=== PATIENT | female | born 1940 | race Caucasian/White ===

== ENCOUNTER 2017-02-25 06:59 | Inpatient (IN) | payer OTHER ==
[2017-01-29 13:05] VITALS: Ht 170.2 cm; Wt 85.3 kg
--- NOTE | 2017-01-29 13:43 | PAT Medication Instructions ---
Service Date Jan 29, 2017. Current Home Medication List Aclidinium Lodi (Tudorza Pressair), 1 PUFF INH BID Alprazolam (Xanax), 0.5 TAB PO DAILY PRN for Anxiety Aspirin (Aspirin Ec), 81 MG PO QAM Celecoxib (CeleBREX), 1 CAP PO DAILY PRN for Pain Medication Instructions For Your Scheduled Surgery - Check with surgeon for instructions: Celecoxib (CeleBREX), 1 CAP PO DAILY PRN for Pain - Take the following medications the morning of surgery with a sip of water: Aclidinium Lodi (Tudorza Pressair), 1 PUFF INH BID Alprazolam (Xanax), 0.5 TAB PO DAILY PRN for Anxiety (if needed) Aspirin (Aspirin Ec), 81 MG PO QAM - Take the following medications as scheduled the night before surgery: Aclidinium Lodi (Tudorza Pressair), 1 PUFF INH BID Alprazolam (Xanax), 0.5 TAB PO DAILY PRN for Anxiety (if needed) If you have any questions please call us at [phone] or [phone] or [phone]
--- NOTE | 2017-01-29 14:51 | DIAGNOSTIC IMAGING REPORT ---
CHEST 2 VIEWS ROUTINE CLINICAL HISTORY: PAT preoperative evaluation COMPARISON STUDY: No previous studies for comparison. FINDINGS: Findings consistent with a total left pneumonectomy. Cardia style silhouette shift to the left on a compensatory basis. Right lung is considered clear. IMPRESSION: No acute process. Prior left pneumonectomy. The above report was generated using voice recognition software. It may contain grammatical, syntax or spelling errors. Electronically signed by: Donato Patel M.D. 01/29/2017 2:50 PM Dictated Date/Time: 01/29/2017 2:49 PM
[2017-01-29 15:42] LABS: BASO % 0.6 %; BASO ABS # 0.04 K/uL (0-0.2); EOS % 3.3 %; EOS ABS # 0.22 K/uL (0-0.5); HEMOGLOBIN 13.4 g/dL (12.0-16.0); IG# 0.02 K/uL (0.00-0.02); LYMPH % 19.7 %; LYMPH ABS # 1.33 K/uL (1.2-3.4); MEAN CELL VOLUME 91.9 fL (80-100); MEAN CORPUSCULAR HGB CONC 32.7 g/dl (32-36); MEAN PLATELET VOLUME 10.2 fL (7.4-10.4); MONO % 8.9 %; NEUT % 67.2 %; NEUT ABS # 4.53 K/uL (1.4-6.5); PLATELET COUNT 267 K/uL (130-400); RED CELL DISTRIBUTION WIDTH CV 13.9 % (11.5-14.5); RED CELL DISTRIBUTION WIDTH SD 46.7 fL (36.4-46.3); WHITE BLOOD COUNT 6.74 K/uL (4.8-10.8)
[2017-01-29 15:49] LABS: ALBUMIN 3.7 gm/dl (3.4-5.0); CALCIUM 9.4 mg/dl (8.5-10.1); CREATININE 0.98 mg/dl (0.60-1.20)
[2017-01-29 15:50] LABS: PTT PATIENT 28.5 SECONDS (21.0-31.0)
[2017-01-30 06:42] LABS: HEMOGLOBIN A1C 5.7 % (4.5-5.6)
--- NOTE | 2017-02-24 19:16 | HISTORY & PHYSICAL EXAMINATION ---
DATE OF ADMISSION: 02/25/2017 CHIEF COMPLAINT: Chronic right knee pain. HISTORY OF PRESENT ILLNESS: This is a 76-year-old female patient of Dr. Looney'awa complaining of chronic right knee pain, longstanding, now progressively getting worse. The patient has been diagnosed with end-stage osteoarthritis, per clinical and radiographic exams. The patient has failed conservative treatment including intraarticular injections and anti-inflammatories. The patient has increased pain with weightbearing activities and her pain does interfere with her activities of daily living. PAST MEDICAL HISTORY: She had a left lung removed, osteoarthritis, and history of lung cancer. SOCIAL HISTORY: She was a lifelong smoker, half pack per day, quit in 2009. She is currently an occasional alcohol drinker. PAST SURGICAL HISTORY: Lung resection, 2 C-sections, tonsillectomy and appendectomy. FAMILY HISTORY: Noncontributory. REVIEW OF SYSTEMS: The patient complains of chronic right knee pain; otherwise, denies any shortness of breath, chest pain, nausea, vomiting or any other joint complaints. MEDICATIONS: Include: 1. Tudorza inhaler twice daily. 2. Alprazolam 0.5 mg 1/2 tablet as needed. 3. Celebrex 200 mg p.r.n. 4. An 81 mg aspirin daily. ALLERGIES: IV DYE AND WELLBUTRIN. PHYSICAL EXAMINATION: GENERAL: Well-developed, well-nourished 76-year-old female in no acute distress. She is alert and oriented x3 and pleasant. HEENT: Normocephalic, atraumatic. Extraocular motions are intact. Pupils are equal and reactive to light. HEART: Regular rate and rhythm, no murmurs appreciated. LUNGS: Have significantly decreased sounds on the left side. Right side normal. ABDOMEN: Soft, nontender, bowel sounds present. EXTREMITIES: Right knee reveals a valgus deformity. She has diffuse tenderness with crepitation on passive range of motion. Range of motion is 0-135 degrees. She has 5/5 strength. NEUROLOGIC: Neurovascularly, she is intact in her right lower extremity. DIAGNOSES: Right knee end-stage osteoarthritis, history of lung cancer with subsequent lung resection on the left, and osteoarthritis. PLAN: The patient was advised of her diagnosis. Indications, risks, benefits, and postop course have all been reviewed. The patient wishes to proceed with a right total knee arthroplasty. Necessary consent forms, preoperative testing and clearances will be obtained.
[~2017-02-25] VITALS: Ht 170.2 cm; Wt 85.3 kg
[2017-02-25] VITALS (8 sets, daily range): BP systolic 93–136; BP diastolic 59–87; PULSE 74–95; TEMP 36.3–36.8; O2SAT 93–97
[2017-02-25] MEDS: TRANEXAMIC ACID INJ 1,000 MG in SYRINGE 0 ML IV SCH ×2 (06:30→09:00)
[~2017-02-25 06:59] MED LIST: ACETAMINOPHEN 500 MG TAB PO SCH; ACLI1AER3 INH; ALPR-411 PO; ASPI81TA28 PO; BUPIVACAINE 0.25% 30 ML VIAL ONE; BUPIVACAINE 0.5 % 5 MG/1 ML PF 10ML VIAL ONE; CEFAZOLIN 2000MG IV PUSH 10 ML IV SCH; CLB/200 PO; CeleBREX 200 MG CAP PO SCH; DEXAMETHASONE 4 MG TAB PO SCH; FAMOTIDINE 20 MG TAB PO SCH; GABAPENTIN 300 MG CAP PO SCH; LACTATED RINGER'S 1000ML 1,000 ML IV SCH; LACTATED RINGER'S 1000ML 500 ML IV SCH; LACTATED RINGER'S 1000ML IV SCH; METOCLOPRAMIDE HCL 10 MG TAB PO SCH; ROPIVACAINE 5MG/ML 30 ML 150 MG, BUPIVACAINE 0.5% MPF INJ 30 ML, EpINEphrine HCL INJ 0.... INFIL SCH
[2017-02-25] MEDS ORDERED: ATROPINE SULFATE 0.1 MG/ML 5ML SYR IV PRN (07:15)
[2017-02-25] MEDS ORDERED: ONDANSETRON INJ 2 MG/ML 2 ML VIAL IV PRN ×2 (07:15→12:00)
[2017-02-25] MEDS ORDERED: EpHEDrine SULFATE INJ 50 MG/ML AMP IV PRN (07:15)
[2017-02-25] MEDS ORDERED: MIDAZOLAM HCL 1 MG/ML 2ML VIAL ONE ×2 (08:07)
[2017-02-25] MEDS ORDERED: LIDOCAINE HCL 2% 2 ML VIAL (20MG/ML) ONE (08:07)
[2017-02-25] MEDS ORDERED: PROPOFOL IV EMULSION 10 MG/ML 20 ML VIAL IV ONE (08:07)
--- NOTE | 2017-02-25 09:21 | History & Physical Bridge Note ---
H&P Re-Evaluation Bridge Note: I have examined the patient, reviewed the History & Physical and in the interval since the performance of the History & Physical I have noted the following changes of clinical significance: No changes noted
[2017-02-25] MEDS ORDERED: ORTHO JOINT ANESTHETIC ONE (09:30)
[2017-02-25] MEDS ORDERED: BACITRACIN 50000 UNIT VIAL ONE (09:30)
[2017-02-25] MEDS: POVIDONE-IODINE OP SOLN 30 ML BTL ONE ×2 (10:29→11:37)
[2017-02-25] MEDS ORDERED: SOD PHOSPHATE/SOD BIPHOSPHATE ENEMA 132 ML BTL PR PRN (12:00)
[2017-02-25] MEDS ORDERED: ZOLPIDEM TARTRATE 5 MG TAB PO PRN (12:00)
[2017-02-25] MEDS ORDERED: CEFAZOLIN IV 2,000 MG in DEXTROSE 5% 50ML 50 ML IV SCH (12:00)
[2017-02-25] MEDS ORDERED: ALPRAZOLAM 0.25 MG TAB PO PRN (12:00)
[2017-02-25] MEDS ORDERED: MoRPHine SULFATE 2 MG/ML CARP IV PRN ×2 (12:00→14:00)
[2017-02-25] MEDS ORDERED: MAGNESIUM HYDROXIDE SUSP 30 ML UDC PO PRN (12:00)
[2017-02-25] MEDS ORDERED: BISACODYL 10 MG SUPP PR PRN (12:00)
[2017-02-25] MEDS ORDERED: METOCLOPRAMIDE HCL INJ 5 MG/ML 2 ML VIAL IV PRN (12:00)
[2017-02-25] MEDS ORDERED: TRAMADOL HCL 50 MG TAB PO PRN (12:00)
--- NOTE | 2017-02-25 12:02 | [facility] Post Operative Brief Note ---
Immediate Operative Summary Operative Date Feb 25, 2017. Pre-Operative Diagnosis Right knee end-stage osteoarthritis Post-Operative Diagnosis same Procedure(s) Performed Right Total Knee Arthroplasty Surgeon Dr. Liu Looney Bisque Tile Burner Surgeon(s) Donato Ochoa PA-C Estimated Blood Loss 10cc Findings lateral compartment oa grade 4 valgus knee Specimens bone cuts Drains 2 hemovac Anesthesia spinal sedation and orthomix Complication(s) None Disposition Recovery Room / PACU
--- NOTE | 2017-02-25 12:12 | Anesthesiology Progress Note ---
Anesthesia Post Op Note Date & Time Feb 25, 2017 at 12:12 Vital Signs Pain Intensity: 0 Vital Signs Past 12 Hours Date Time Temp Pulse Resp B/P (MAP) Pulse Ox O2 Delivery O2 Flow Rate FiO2 02/25/17 12:05 90 14 101/65 93 Nasal Cannula 2 02/25/17 12:00 126/77 02/25/17 11:57 88/58 02/25/17 11:56 37.0 102 16 78/60 96 Nasal Cannula 2 02/25/17 08:19 36.8 87 20 136/87 93 Room Air Notes Mental Status: alert / awake / arousable, participated in evaluation Pt Amnestic to Procedure: Yes Nausea / Vomiting: adequately controlled Pain: adequately controlled Airway Patency, RR, SpO2: stable & adequate BP & HR: stable & adequate Hydration State: stable & adequate Neuraxial Anesthesia: was administered, sensory block is resolving Anesthetic Complications: no major complications apparent
--- NOTE | 2017-02-25 12:25 | DIAGNOSTIC IMAGING REPORT ---
RIGHT KNEE 2 VIEWS History: Right total knee arthroplasty. Degenerative arthritis. Postop. FINDINGS: The patient is status post a right total knee arthroplasty. The hardware is intact. No fracture or dislocation. Skin candis and surgical drains are in place. IMPRESSION: Right total knee arthroplasty. No evidence for hardware complication. Electronically signed by: Luciano Heath M.D. 02/25/2017 12:24 PM Dictated Date/Time: 02/25/2017 12:24 PM
--- NOTE | 2017-02-25 13:29 | OPERATIVE REPORT ---
DATE OF OPERATION: 02/25/2017 INDICATION FOR PROCEDURE: The patient is a 76-year-old female who presents with progressive pain in her right knee. She clearly has [id number] crepitation in her lateral compartment on exam. She has radiographs and MRI demonstrating a complete loss of articular cartilage in the lateral compartment of her knee. She has chronic synovitis. PREOPERATIVE DIAGNOSIS: End-stage osteoarthritis, right knee. POSTOPERATIVE DIAGNOSIS: Same. PROCEDURE: Right total knee arthroplasty. SURGEON: Dr. Looney. CASING FLUSHER: Donato Ochoa PA-C. ANESTHESIA: Spinal, adductor nerve block and Orthomix. OPERATION AND FINDINGS: OPERATIVE PROCEDURE: The patient was taken to the operating room and anesthetized under anesthesia as dictated. Pneumatic tourniquet was placed on right upper thigh which was moderately obese. Right lower extremity was examined under anesthesia. She had a valgus knee, [id number] crepitation laterally. No gross instability. She did have a large effusion. She had good range of motion. The right lower extremity was sterilely prepped and draped with ChloraPrep. The leg was elevated, exsanguinated with Esmarch bandage. Pneumatic tourniquet was raised to 325 mmHg. Anterior incision made across the knee. Skin was incised sharply down to the fascia. She did have a fairly deep layer of fat and multiple varicose veins that were cauterized along the way. It was noted that she had a little bit more than typical edema in the subcutaneous tissues. The incision was made through medial retinaculum and extended up in the mid third of the quadriceps tendon and extended down to the medial tibial tubercle. Intraarticular findings demonstrate she had eburnated bone and some bone loss and some hypoplasia lateral femoral condyle with grade 4 [id number] in the lateral compartment. No lateral meniscus tissue left anteriorly. She did have some posterior lateral meniscus remaining. The medial compartment and patellofemoral compartment had some moderate osteoarthritis and she had some white discoloration of tissues likely from chronic steroid injections. I used the [employer] 2.0, total knee arthroplasty system using visionary MRI templating with femur sized for a 4, tibia for a 3. The knee was exposed by excising the infrapatellar fat pad, excising some of the fat pad over the anterior femur for placement of the component in that area, releasing the lateral synovial bands, and excising the remnants of the lateral meniscus, excising the medial meniscus, excising the cruciate ligaments. The femur was exposed and the custom femoral cutting block was pinned in position and the distal femoral cut was made. Then the 5-in-1 cutting block for the 4 femur was placed. Anterior, posterior and chamfer cuts were made. Then the tibia was exposed and the custom tibial cutting block was pinned in position. The proximal tibial cut was made. We did note that both femur and tibia she did have significant osteoporosis and soft bone noted. The knee was then fully extended and a subperiosteal peel lateral release was made around the patella and the patella width was measured. Width was reproduced using free hand cut technique and a 32 patellar component. Drill holes were made for the domed component. The excess lateral facet was beveled off to prevent any impingement. We assessed ligaments balance in extension and flexion, ligaments were balanced. The tibia was re-exposed and the 3 tibial trial was externally rotated in line with the tibial tubercle, pinned in position. The punch for the stem was used and then the 4 femoral trial was centered after it was inserted fully and then the notch cutting devices were used and the collet was placed and 12 trial insert gave balance, ligaments with full range of motion. Patella had just a slight liftoff during range of motion in mid flexion and then centered so I felt we did need to do some lateral release. We did release the lateral retinaculum leaving the synovium intact and then the patella tracked completely centrally without difficulty. The trials were removed. The Orthomix anesthetic was injected per protocol. We did not use the Betadine soak due to an iodine allergy potentially. The knee was kept in full extension while the cement cured. Final components were cemented with Simplex G cement were the 4 Oxinium posterior stabilized right femoral component, 3 tibial baseplate, the 12 mm poly insert, posterior stabilized high flex and the 32 dome patella. After cement cured, 2 drains were brought out laterally and connected to a Hemovac. The knee was copiously irrigated with pulsatile lavage and antibiotic solution with bacitracin. The quadriceps tendon and medial retinaculum were closed with interrupted [id number] #1 Vicryl sutures. The knee was taken through full range of motion and repair was secure. The subcutaneous tissues were repaired with interrupted 2-0 Vicryl sutures and skin was closed with candis and we did apply a superficial wound VAC. The patient's tourniquet was let down. She had good capillary refill to the extremities. She tolerated the procedure well. ROVERTO Couch was my first calender worker. He functioned as first calender worker for the entire procedure. He assisted in patient positioning, prepping, draping, soft tissue retraction, instrument management throughout the procedure and he assisted in the subcutaneous and skin closure and will participate in postoperative care of the patient. I attest to the content of the Intraoperative Record and any orders documented therein. Any exception s are noted below.
[2017-02-25] MEDS ORDERED: MoRPHine SULFATE 4 MG/ML 1 ML CARP\\VIAL IV PRN (14:00)
[2017-02-25] MEDS: ACETAMINOPHEN 500 MG TAB PO SCH ×2 (14:28→21:32)
[2017-02-25] MEDS: D5W AND 1/2NSS + 20MEQ KCL 1,000 ML IV SCH (14:29)
--- NOTE | 2017-02-25 14:39 | Medical Consult ---
Consultation Date of Consultation: Feb 25, 2017. Attending Physician: Liu Looney M.D. History of Present Illness 76 y/o F Hx lung CA - L pneumonectomy 2010. Pt presented for elective R TKR. The medical service is asked to evaluate the pt post-op. She is recovering well. Denies any present pain at the surgical site. Denies CP, SOB, N/V, lightheadedness. Past Medical/Surgical History 1) Lung CA - diagnosed 2010 - L pneumonectomy 2010 followed by chemo and radiation. 2) Osteoarthritis Social History Smoking Status: Former Smoker Allergies Coded Allergies: Bupropion (Verified Allergy, Unknown, hives, 02/25/17) Iodinated Diagnostic Agents (Verified Allergy, Unknown, hives, 02/25/17) Current Inpatient Medications Current Inpatient Medications Medications (Trade) Dose Ordered Sig/Preethi Route Start Time Stop Time Status Last Admin Dose Admin Cefazolin Sodium 10 ml @ 2.5 mls/min PREOP IV 02/25/17 06:00 02/25/17 18:00 02/25/17 09:57 2.5 MLS/MIN Acetaminophen (Tylenol Tab) 1,000 mg PREOP PO 02/25/17 06:00 02/25/17 18:00 02/25/17 07:49 1,000 MG Celecoxib (CeleBREX CAP) 200 mg PREOP PO 02/25/17 06:00 02/25/17 18:00 02/25/17 07:48 200 MG Dexamethasone (Decadron Tab) 8 mg PREOP PO 02/25/17 06:00 02/25/17 18:00 02/25/17 07:47 8 MG Famotidine (Pepcid Tab) 20 mg PREOP PO 02/25/17 06:00 02/25/17 18:00 02/25/17 07:48 20 MG Gabapentin (Neurontin Cap) 300 mg PREOP PO 02/25/17 06:00 02/25/17 18:00 02/25/17 07:47 300 MG Metoclopramide HCl (Reglan Tab) 10 mg PREOP PO 02/25/17 06:00 02/25/17 18:00 02/25/17 07:48 10 MG Lactated Ringer's 1,000 ml @ 60 mls/hr [id number] IV 1/11/18 06:00 02/25/17 22:39 Lactated Ringer's 1,000 ml @ 15 mls/hr Q24H IV 02/25/17 06:00 02/26/17 05:59 Alprazolam (Xanax Tab) 0.25 mg DAILY PRN PO 02/25/17 12:00 03/27/17 11:59 Miscellaneous Information (Order Awaiting Action) 1 ea BID N/A 02/25/17 21:00 03/27/17 20:59 Potassium Chloride/Dextrose/ Sod Cl 1,000 ml @ 100 mls/hr Q10H IV 02/25/17 14:00 02/26/17 11:53 Celecoxib (CeleBREX CAP) 200 mg BID PO 02/25/17 21:00 03/27/17 20:59 Oxycodone HCl (Roxicodone Immediate Rel Tab) 1 TABLET FOR PAIN RATING... Q4H PRN PO 02/25/17 12:00 03/11/17 11:59 Acetaminophen (Tylenol Tab) 1,000 mg Q8H PO 02/25/17 14:00 03/27/17 13:59 Magnesium Hydroxide (Milk Of Magnesia Susp) 30 ml Q6H PRN PO 02/25/17 12:00 03/27/17 11:59 Bisacodyl (Dulcolax Supp) 10 mg DAILY PRN HI 02/25/17 12:00 03/27/17 11:59 Sodium Biphosphate/ Sodium Phosphate (Fleet Enema) 132 ml DAILY PRN HI 02/25/17 12:00 03/27/17 11:59 Docusate Sodium (coLACE CAP) 100 mg BID PO 02/25/17 21:00 03/27/17 20:59 Diphenhydramine HCl (Benadryl Cap) 25 mg Q8H PRN PO 02/25/17 12:00 03/27/17 11:59 Zolpidem Tartrate (Ambien Tab) 5 mg HSZ PRN PO 02/25/17 12:00 03/27/17 11:59 Multivitamins (Multivitamin Tab) 1 tab QAM PO 02/26/17 09:00 03/28/17 08:59 Ondansetron HCl (Zofran Inj) 4 mg Q6H PRN IV 02/25/17 12:00 03/27/17 11:59 Metoclopramide HCl (Reglan Inj) 10 mg Q6H PRN IV 02/25/17 12:00 03/27/17 11:59 Pantoprazole Sodium (Protonix Tab) 40 mg QAM PO 02/26/17 09:00 03/28/17 08:59 Tramadol HCl (Ultram Tab) 1 tablet for pain rating... Q4H PRN PO 02/25/17 12:00 03/27/17 11:59 Aspirin (Ecotrin Tab) 81 mg BID PO 02/25/17 21:00 03/27/17 20:59 Morphine Sulfate (MoRPHine SULFATE INJ) 2 mg Q2H PRN IV 02/25/17 14:00 03/11/17 13:59 Morphine Sulfate (MoRPHine SULFATE INJ) 4 mg Q2H PRN IV 02/25/17 14:00 03/11/17 13:59 Cefazolin Sodium 2000 mg/Syringe 10 ml @ 2.5 mls/min Q8H IV 02/25/17 18:00 02/26/17 02:03 Review of Systems Constitutional: No fever, No chills, No sweats Eyes: No worsening of vision ENT: No hearing loss, No unusual epistaxis, No nasal symptoms Respiratory: No cough, No sputum, No wheezing Cardiovascular: No chest pain, No orthopnea, No PND Abdomen: No pain, No nausea, No vomiting Musculoskeletal: No joint pain Genitourinary - Female: No dysuria, No urinary frequency, No urinary urgency Neurologic: No memory loss, No paralysis, No weakness Psychiatric: No depression symptoms Endocrine: No fatigue Hematologic / Lymphatic: No abnormal bleeding/bruising Integumentary: No rash Physical Exam Date Time Temp Pulse Resp B/P (MAP) Pulse Ox O2 Delivery O2 Flow Rate FiO2 02/25/17 14:18 79 16 99/66 (77) 97 2.0 02/25/17 13:48 82 16 93/59 (70) 96 2.0 02/25/17 13:20 36.8 95 16 100/64 (76) 95 Nasal Cannula 2.0 02/25/17 13:20 Nasal Cannula 2.0 02/25/17 13:00 94 16 94/62 95 Nasal Cannula 2 02/25/17 12:45 92 16 98/67 96 Nasal Cannula 2 02/25/17 12:30 36.8 92 18 103/63 96 Nasal Cannula 2 02/25/17 12:15 93 18 95/67 96 Nasal Cannula 2 02/25/17 12:05 90 14 101/65 93 Nasal Cannula 2 02/25/17 12:00 126/77 02/25/17 11:57 88/58 02/25/17 11:56 37.0 102 16 78/60 96 Nasal Cannula 2 02/25/17 08:19 36.8 87 20 136/87 93 Room Air General Appearance: WD/WN, no apparent distress Head: normocephalic Eyes: normal inspection ENT: normal ENT inspection, hearing grossly normal, TMs normal, pharynx normal Neck: supple, no JVD Respiratory/Chest: chest non-tender, + pertinent finding (Minimal air entry on L - R lung clear) Cardiovascular: regular rate, rhythm, no edema, no gallop Abdomen/GI: normal bowel sounds, non tender, soft Genitourinary - Female: external genitalia normal, normal pelvic exam, normal cervix Back: normal inspection, no CVA tenderness Extremities/Musculoskelatal: normal inspection, no calf tenderness, normal capillary refill Neurologic/Psych: fitter's assistant II-XII nml as tested, no motor/sensory deficits, alert, oriented x 3 Skin: normal color, warm/dry Assessment & Plan 76 y/o F Hx lung CA - L pneumonectomy 2010. Pt presented for elective R TKR. The medical service is asked to evaluate the pt post-op. She is recovering well. Denies any present pain at the surgical site. Denies CP, SOB, N/V, lightheadedness. The pt appears well - she does not have any present complaints. We would initiate anticoagulation at the earliest possible time. Cont IVF pending AM labs. Her pain is adequately controlled. PT/OT to discretion of ortho. As the pt does not have any active medical issues, the medical service will sign off - will remain health information technician for inpt reqests/issues and emergent care Total time for this consult including review of labs, meds, surgery records - discussion with pt/family - 26 min
[2017-02-25] MEDS: CEFAZOLIN IV 2,000 MG in SYRINGE 0 ML IV SCH (19:22)
[2017-02-25] MEDS ORDERED: ACLIDINIUM BROMIDE SCH (21:00)
[2017-02-25] MEDS: DOCUSATE SODIUM 100 MG CAP PO SCH (21:31)
[2017-02-25] MEDS: ASPIRIN 81 MG ECTAB PO SCH (21:31)
[2017-02-25] MEDS: CeleBREX 200 MG CAP PO SCH (21:44)
[2017-02-25] MEDS: ACLIDINIUM BROMIDE INH SCH (21:44)
[2017-02-26] MEDS: D5W AND 1/2NSS + 20MEQ KCL 1,000 ML IV SCH ×2 (00:09→09:16)
[2017-02-26] MEDS: CEFAZOLIN IV 2,000 MG in SYRINGE 0 ML IV SCH (01:32)
[2017-02-26 03:42] VITALS: BP 116/75; PULSE 78; TEMP 36.4; O2SAT 94
[2017-02-26] MEDS: ACETAMINOPHEN 500 MG TAB PO SCH ×3 (05:58→21:17)
[2017-02-26 06:20] LABS: HEMATOCRIT 32.7 % (37-47); HEMOGLOBIN 10.9 g/dL (12.0-16.0); MEAN CELL VOLUME 90.8 fL (80-100); MEAN CORPUSCULAR HEMOGLOBIN 30.3 pg (25-34); MEAN CORPUSCULAR HGB CONC 33.3 g/dl (32-36); MEAN PLATELET VOLUME 9.8 fL (7.4-10.4); PLATELET COUNT 212 K/uL (130-400); RED CELL DISTRIBUTION WIDTH CV 14.4 % (11.5-14.5); RED CELL DISTRIBUTION WIDTH SD 48.3 fL (36.4-46.3); WHITE BLOOD COUNT 13.39 K/uL (4.8-10.8)
[2017-02-26 06:49] LABS: CALCIUM 8.8 mg/dl (8.5-10.1); CREATININE 0.98 mg/dl (0.60-1.20); POTASSIUM 3.9 mmol/L (3.5-5.1)
[2017-02-26 07:00] VITALS: BP 111/70; PULSE 77; TEMP 36.4; O2SAT 96
--- NOTE | 2017-02-26 07:31 | Orthopedic Progress Note ---
Orthopedic Progress Note Date of Service Feb 26, 2017. Subjective Post OP Day: 1 Reports: feeling well, Denies: complaints Objective calves soft nontender, N/V intact, dressing C/D/I, A&O x3, toes mobile Date Time Temp Pulse Resp B/P (MAP) Pulse Ox O2 Delivery O2 Flow Rate FiO2 02/26/17 07:00 36.4 77 16 111/70 (84) 96 Room Air 02/26/17 03:42 36.4 78 16 116/75 (89) 94 Room Air 02/26/17 00:15 Room Air 02/25/17 23:16 36.3 74 16 103/66 (78) 95 Room Air 02/25/17 19:25 36.7 93 16 116/71 (86) 94 Room Air 02/25/17 16:22 36.4 80 16 103/66 (78) 93 Room Air 02/25/17 15:30 Room Air 02/25/17 15:16 36.4 78 16 96/61 (73) 97 Room Air 02/25/17 14:18 79 16 99/66 (77) 97 2.0 02/25/17 13:48 82 16 93/59 (70) 96 2.0 02/25/17 13:20 36.8 95 16 100/64 (76) 95 Nasal Cannula 2.0 02/25/17 13:20 Nasal Cannula 2.0 02/25/17 13:00 94 16 94/62 95 Nasal Cannula 2 02/25/17 12:45 92 16 98/67 96 Nasal Cannula 2 02/25/17 12:30 36.8 92 18 103/63 96 Nasal Cannula 2 02/25/17 12:15 93 18 95/67 96 Nasal Cannula 2 02/25/17 12:05 90 14 101/65 93 Nasal Cannula 2 02/25/17 12:00 126/77 02/25/17 11:57 88/58 02/25/17 11:56 37.0 102 16 78/60 96 Nasal Cannula 2 02/25/17 08:19 36.8 87 20 136/87 93 Room Air Laboratory Results 24 Hours: Test 02/26/17 06:02 Hematocrit 32.7 % Hemoglobin 10.9 g/dL Assessment & Plan Assessment: POD 1 s/p Right TKA Plan: PT/OT Planning for OPPT upon dc Inhouse Planning Pain Management: Celebrex, Ultram, PO Tylenol, Oxy IR DVT Prophylaxis: TEDs, SCDs, ASA Discharge Planning Discharge Planning: home with oppt
--- NOTE | 2017-02-26 08:33 | Anesthesiology Progress Note ---
Anesthesia Post Op Note Date & Time Feb 26, 2017 at 08:33 Vital Signs Pain Intensity: 0.0 Vital Signs Past 12 Hours Date Time Temp Pulse Resp B/P (MAP) Pulse Ox O2 Delivery O2 Flow Rate FiO2 02/26/17 07:25 Room Air 02/26/17 07:00 36.4 77 16 111/70 (84) 96 Room Air 02/26/17 03:42 36.4 78 16 116/75 (89) 94 Room Air 02/26/17 00:15 Room Air 02/25/17 23:16 36.3 74 16 103/66 (78) 95 Room Air Notes Mental Status: alert / awake / arousable, participated in evaluation Pt Amnestic to Procedure: Yes Nausea / Vomiting: adequately controlled Pain: adequately controlled Airway Patency, RR, SpO2: stable & adequate BP & HR: stable & adequate Hydration State: stable & adequate Neuraxial Anesthesia: sensory block resolved Anesthetic Complications: no major complications apparent
[2017-02-26] MEDS: ACLIDINIUM BROMIDE INH SCH ×2 (08:37→21:15)
[2017-02-26] MEDS: CeleBREX 200 MG CAP PO SCH ×2 (08:38→21:17)
[2017-02-26] MEDS: DOCUSATE SODIUM 100 MG CAP PO SCH ×2 (08:38→21:17)
[2017-02-26] MEDS: PANTOprazole SOD 40 MG TAB PO SCH (08:39)
[2017-02-26] MEDS: MULTIVITAMIN TAB PO SCH (08:39)
[2017-02-26] MEDS: ASPIRIN 81 MG ECTAB PO SCH ×2 (08:39→21:17)
[2017-02-26] MEDS: OXYCODONE HCL IR 5 MG TAB (IMMEDIATE RELEASE) PO PRN ×3 (08:42→21:15)
--- NOTE | 2017-02-26 09:57 | Discharge Instructions ---
Discharge Instructions Date of Service Feb 26, 2017. Admission Reason for Admission: Right Knee Degenerative Joint Disease Discharge Discharge Diagnosis / Problem: Right Knee Djd Discharge Goals Goal(s): Decrease discomfort, Improve function, Increase independence Activity Recommendations Activity Limitations: per Instructions/Follow-up section Weightbearing Status: Right weightbearing (as tolerated) . Instructions / Follow-Up Instructions / Follow-Up ACTIVITY RECOMMENDATIONS: SELF CARE INSTRUCTIONS AFTER TOTAL KNEE REPLACEMENT A. You may need to continue a physical therapy program after discharge from the hospital. There are several options available to you. Your doctor will assist you in selecting the best one for you. 1. An out-patient facility 2 to 3 times a week for therapy or home therapy. 2. Continue working on all exercises taught to you in the hospital. Your goals should be to increase bending of your knee to 90 degrees and beyond and to fully straighten your knee. B. You may progress at your own pace from walking with a walker or crutches to a cane; then to no assistive devices. C. Make walking a part of your daily routine. Be up as much as comfortable with rest periods throughout the day. Rest with leg elevation is very important. Use the ice wrap frequently for the first 3-4 weeks. D. There are no restrictions on activities. You may ride in a car, shop, participate in vp security and all social activities. E. Wear the long elastic stockings (USHA hose) 20 hours a day for 2 weeks after surgery. They can be removed several times a day for laundering and for a bath. F. You may shower, no tub baths until cleared by your doctor. SPECIAL CARE INSTRUCTIONS: VERY IMPORTANT TO READ AND REVIEW A. There are a few signs you need to watch for after you are home. Call [facility] if you notice any of the followin. Increased severe knee pain. Some pain is expected especially when you exercise. 2. Increased swelling in your leg or knee; pain or swelling of the calf muscle in either lower leg. 3. Any fluid drainage from the incision. 4. Shortness of breath or chest pain. B. Please call [facility] at if you have any concerns or questions about your operation or recovery. The doctor or his nurse will return your call promptly. C. You must take antibiotics before dental work, bladder, bowel or other surgery. Your doctor will provide you with a permanent care to carry describing this precaution. IMPORTANT: * REMEMBER TO TAKE ASPIRIN, 81 MG, TWICE DAILY FOR 4 WEEKS UNLESS OTHERWISE DIRECTED. THIS IS YOUR BLOOD THINNER. * HIGH RISK PATIENTS MAY BE PRESCRIBED A STRONGER BLOOD THINNER. THIS WILL BE PROVIDED AT DISCHARGE. * CALL IF INCREASED PAIN, REDNESS, DRAINAGE OR FEVER GREATER THAT 101. * WEAR USHA HOSE 20 HOURS PER DAY FOR 2 WEEKS. * Prevena- This is a large suction dressing covering your incision. This will help pull any excess drainage from the wound and allow your incision to heal properly. You may shower with this if you can keep the unit outside of the shower. If any bleeding or leakage is noted please call your doctor's office. This will remain on your incision for 7 days and then should be removed. This can be done yourself or by the home nursing staff if applicable. The entire unit is disposable once removed. Once removed, keep incision clean and dry. If redness or drainage is noted, please call your surgeon. . FOLLOW UP VISIT: If appointment is not already scheduled: Please call [facility] to make a follow-up appointment for 2 weeks after your surgery at . Current Hospital Diet Patient's current hospital diet: Regular Diet Discharge Diet Recommended Diet: Regular Diet Procedures Procedures Performed: Right Total Knee Arthroplasty Pending Studies Studies pending at discharge: no Laboratory Results Hemoglobin A1c Test 01/29/17 13:53 Range/Units Estimated Average Glucose 117 mg/dl Hemoglobin A1c 5.7 H 4.5-5.6 % Medical Emergencies . Who to Call and When: Medical Emergencies: If at any time you feel your situation is an emergency, please call 911 immediately. . Non-Emergent Contact Non-Emergency issues call your: Surgeon Call Non-Emergent contact if: temperature is above 101.5, your pain is not controlled, your pain is worsening, wound has increased drainage, wound has increased redness . "Provider Documentation" section prepared by Juan Cuello. . VTE Core Measure Inpt VTE Proph given/why not?: Other Anticoagulation, T.E.D. Stockings, SCD's [place] Drug Monitoring Program Search Results: patient reviewed within database, no issues identified
[2017-02-26 11:02] VITALS: BP 114/75; PULSE 86; TEMP 36.3; O2SAT 94
[2017-02-26 11:12] VITALS: PULSE 115; O2SAT 94
[2017-02-26 14:58] VITALS: BP 111/72; PULSE 79; TEMP 36.4; O2SAT 94
[2017-02-26 23:18] VITALS: BP 100/65; PULSE 81; TEMP 36.6; O2SAT 97
[2017-02-27] MEDS: ACETAMINOPHEN 500 MG TAB PO SCH (05:47)
[2017-02-27 06:15] VITALS: BP 134/83; PULSE 80; TEMP 36.4; O2SAT 96
[2017-02-27 07:14] LABS: HEMATOCRIT 31.2 % (37-47); MEAN CELL VOLUME 91.5 fL (80-100); MEAN CORPUSCULAR HEMOGLOBIN 29.3 pg (25-34); MEAN CORPUSCULAR HGB CONC 32.1 g/dl (32-36); PLATELET COUNT 211 K/uL (130-400); RED CELL DISTRIBUTION WIDTH CV 14.6 % (11.5-14.5); RED CELL DISTRIBUTION WIDTH SD 49.4 fL (36.4-46.3); WHITE BLOOD COUNT 8.26 K/uL (4.8-10.8)
--- NOTE | 2017-02-27 07:26 | Orthopedic Progress Note ---
Orthopedic Progress Note Date of Service Feb 27, 2017. Subjective Post OP Day: 2 Reports: feeling well, Denies: complaints, chest pain, SOB, nausea / vomiting, light headedness, calf pain Objective calves soft nontender, N/V intact, capillary refill less than 2 sec., dressing C /D/I, A&O x3, toes mobile Date Time Temp Pulse Resp B/P (MAP) Pulse Ox O2 Delivery O2 Flow Rate FiO2 02/27/17 06:15 36.4 80 18 134/83 (100) 96 Room Air 02/27/17 00:15 Room Air 02/26/17 23:18 36.6 81 18 100/65 (77) 97 Room Air 02/26/17 16:00 Room Air 02/26/17 14:58 36.4 79 16 111/72 (85) 94 Room Air 02/26/17 11:12 115 94 02/26/17 11:02 36.3 86 16 114/75 (88) 94 Room Air Laboratory Results 24 Hours: Test 02/27/17 06:54 Hematocrit 31.2 % Hemoglobin 10.0 g/dL Assessment & Plan Assessment: POD 2 s/p Right TKA Plan: PT/OT Planning for OPPT but will see how morning PT goes. She may want home health due to steps into her house. Inhouse Planning Pain Management: Celebrex, Ultram, PO Tylenol, Oxy IR DVT Prophylaxis: TEDs, SCDs, ASA Discharge Planning Discharge Planning: home with oppt
[2017-02-27] MEDS ORDERED: RXC5 PO (07:29)
[2017-02-27] MEDS ORDERED: ASPEC81 PO (07:29)
[2017-02-27 07:43] LABS: CALCIUM 8.4 mg/dl (8.5-10.1); CREATININE 1.01 mg/dl (0.60-1.20); POTASSIUM 4.1 mmol/L (3.5-5.1)
[2017-02-27] MEDS: ACLIDINIUM BROMIDE INH SCH (07:56)
[2017-02-27] MEDS: ASPIRIN 81 MG ECTAB PO SCH (07:57)
[2017-02-27] MEDS: DOCUSATE SODIUM 100 MG CAP PO SCH (07:57)
[2017-02-27] MEDS: MULTIVITAMIN TAB PO SCH (07:57)
[2017-02-27] MEDS: CeleBREX 200 MG CAP PO SCH (07:57)
[2017-02-27] MEDS: PANTOprazole SOD 40 MG TAB PO SCH (07:57)
[2017-02-27 10:28] VITALS: BP 134/83; PULSE 80; TEMP 36.4; O2SAT 96
[2017-02-27 10:35] VITALS: BP 134/83; PULSE 80; TEMP 36.4; O2SAT 96
[2017-02-27 11:11] VITALS: BP 134/83; PULSE 80; TEMP 36.4; O2SAT 96
== END 2017-02-27 11:12 | disposition home or self-care (01) | DRG 470 ==
LOC: C.ACU 06:59 → C.3E 09:17 → ENRESERV 13:00
PROVIDERS: ADMIT Orthopaedic Surgery Sports Medicine; ATTEND Orthopaedic Surgery Sports Medicine
PROC: 0SRT0J9 Replacement of Right Knee Joint, Femoral Surface with Synthetic Substitute, Cemented, Open Approach (ICD-10-PCS; principal; 2017-02-25 09:25)
DX: M17.11 Unilateral primary osteoarthritis, right knee (principal); Z85.118 Personal history of other malignant neoplasm of bronchus and lung; Z87.891 Personal history of nicotine dependence; Z79.82 Long term (current) use of aspirin

== ENCOUNTER 2018-12-28 08:19 | Inpatient (IN) ==
--- NOTE | 2018-11-28 15:43 | PAT Medication Instructions ---
Medication Instructions Date of Service November 28, 2018 Home Medications aclidinium bromide 1 inh INHALATION BID alprazolam 0.5 mg PO DAILY PRN [Hair, Skin, Nails with Biotin] 1 tab PO QAM aspirin [Aspir-81] 81 mg PO QAM ferrous sulfate 325 mg PO QAM naproxen sodium [Aleve] 220 mg PO Q8H PRN ASK your surgeon for instructions naproxen sodium [Aleve] 220 mg PO Q8H PRN STOP taking 2 weeks before surgery (or as soon as possible if surgery is within 2 weeks) [Hair, Skin, Nails with Biotin] 1 tab PO QAM DO NOT take the morning of surgery ferrous sulfate 325 mg PO QAM Take morning of surgery With a small sip of water, OTHERWISE NOTHING TO EAT OR DRINK AFTER MIDNIGHT: aclidinium bromide 1 inh INHALATION BID alprazolam 0.5 mg PO DAILY PRN (if needed) aspirin [Aspir-81] 81 mg PO QAM Take evening before surgery aclidinium bromide 1 inh INHALATION BID alprazolam 0.5 mg PO DAILY PRN (if needed) Other Notes If you have any questions please call us at [phone] or [phone] or [phone] or [phone]
--- NOTE | 2018-11-29 14:21 | Anesthesiology Consultation ---
Date of Service November 29, 2018 Assessment & Plan (1) Encounter for pre-operative examination: - Awaiting review preop testing (labs, EKG, CXR). - Murmur noted at PAT exam: requesting PCP obtain ECHO prior to surgery. Also, awaiting surgeon-ordered PCP preop evaluation (Dr. Jimbo Rashid). Chart Review Chart Review: Patient seen in Pre Admission Testing Teaching & Discussion Pre-Anesthesia Teaching/Discussion Notes: Instructed NPO after midnight before surgery,except medications with 15 cc of water. Medication instructions provided according to the [facility] guidelines. History Surgery Operation Date: 12/28/18 09:30 Proposed Procedures p Right Total Hip Arthroplasty - Liu Looney MD Height/Weight Height: 5 ft 7 in Weight: 84.1 kg Allergies Allergy/AdvReac Type Severity Reaction Status Date / Time bupropion Allergy Unknown hives Verified 11/22/18 11:05 Iodinated Contrast Media Allergy Unknown hives Verified 11/22/18 11:05 adhesive tape AdvReac Unknown skin Verified 11/29/18 14:22 irritation- carmenza tape "ok" Medications Home Medications Medication Instructions Recorded Confirmed Last Taken aclidinium bromide 1 inh INHALATION BID 11/22/18 11/22/18 Unknown alprazolam 0.5 mg PO DAILY PRN 11/22/18 11/22/18 Unknown ascorbic acid-vitamin E-biotin 1 tab PO QAM 11/22/18 11/22/18 Unknown [Hair, Skin, Nails with Biotin] aspirin [Aspir-81] 81 mg PO QAM 11/22/18 11/22/18 Unknown ferrous sulfate 325 mg PO QAM 11/22/18 11/22/18 Unknown naproxen sodium [Aleve] 220 mg PO Q8H PRN 11/22/18 11/22/18 Unknown Past Medical History Medical History Anxiety Cancer lung s/p left lobectomy (2010); hx chemo/XRT per records- inhaler BID Exercise / Class Metabolic Activity III < 4 Walking/Shop/Light housework (no chest pain/SOB with daily activities) Past Family History Family History Sister Family history of reaction to anesthesia SLOW TO WAKE UP AFTER LONG SURGERY ON BACK Past Surgical History Surgical History H/O: knee surgery LEFT (FOR LACERATION) History of appendectomy History of bronchoscopy History of section X2 History of colonoscopy History of lung surgery LEFT LOBECTOMY (2010) History of tonsillectomy History of total knee replacement RIGHT Hx of hand surgery 5TH DIGIT (RIGHT HAND) Past Anesthesia History No Hx of Anesthesia Complications and Other Sister: "slow to wake." No known hx reintubation. History of PONV No Hx of PONV and No Hx of Motion Sickness Social History Smoking Status: Former smoker Do You Dip or Chew Tobacco: No Smoking End Date: QUIT 2009 Hx Alcohol Use: Yes Alcohol type: hard liquor alcohol intake frequency: a few times a week Hx Substance Use: No Review of Systems URI improved since starting abx (to be completed prior to surgery). Patient denies chest pain, shortness of breath, reflux, cough, wheezing, palpitations. Physical Exam Vital Signs VITALS BP 115/71 P 88 TEMP 98.6 SP02 95%RA RESP 18 PHYSICAL Full neck and c-spine range of motion. Full TMJ range of motion. 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
--- NOTE | 2018-11-29 15:16 | XRay Report ---
XR chest Pre-admission PA/Lat CLINICAL HISTORY: Preoperative chest COMPARISON STUDY: 01/29/2017 FINDINGS: Postpneumonectomy changes are present on the left with complete opacification left hemithor ax and cardiac and mediastinal shift to the left. The right lung remains clear. There is no failure.[ IMPRESSION: Stable post pneumonectomy changes in the left. No acute findings. Electronically signed by: Rom Dave M.D. 11/29/2018 3:14 PM
[2018-11-29 15:53] LABS: Basophils # (auto) 0.03 K/uL (0-0.2); Basophils % (auto) 0.6 %; Eosinophils # (auto) 0.23 K/uL (0-0.5); Eosinophils % (auto) 4.3 %; Hematocrit (blood only) 39.2 % (37-47); Lymphocytes # (auto) 1.26 K/uL (1.2-3.4); Lymphocytes % (auto) 23.4 %; Mean Corpuscular Hemoglobin 31.3 pg (25-34); Mean Corpuscular Hgb Conc 33.2 g/dL (32-36); Mean Corpuscular Volume 94.5 fL (80-100); Mean Platelet Volume 10.2 fL (7.4-10.4); Monocytes # (auto) 0.58 K/uL (0.11-0.59); Monocytes % (auto) 10.8 %; Neutrophils # (auto) 3.28 K/uL (1.4-6.5); Neutrophils % (auto) 60.9 %; Platelet Count 205 K/uL (130-400); RDW Coefficient of Variation 14.3 % (11.5-14.5); RDW Standard Deviation 48.7 fL (36.4-46.3); Red Blood Count 4.15 M/uL (4.2-5.4); White Blood Count 5.38 K/uL (4.8-10.8)
[2018-11-29 15:54] LABS: Appearance Urine Clear (Clear); Bilirubin Urine Negative (Negative); Blood Urine Negative (Negative); Color Urine Yellow; Glucose Urine UA Negative (Negative); Ketones Urine Negative (Negative); Leukocyte Esterase Urine Negative (Negative); Nitrite Urine Negative (Negative); Protein Urine Negative (Negative); Specific Gravity Urine 1.024 (1.000-1.030); Urobilinogen Urine Negative (Negative)
[2018-11-29 16:03] LABS: Albumin Level 3.6 gm/dl (3.4-5.0); BUN Creatinine Ratio 14.3 (10-20); Calcium 8.8 mg/dl (8.5-10.1); Creatinine Clr Calc Pharmacy 46.4 ml/min; Est GFR (African American) 53.5; Est GFR (Non-African American) 46.2; Potassium 4.4 mmol/L (3.5-5.1)
[2018-11-29 16:05] LABS: INR 1.1 (0.9-1.1); Partial Thromboplastin Ratio 1.1; Partial Thromboplastin Time 30.9 Seconds (21.0-31.0); Prothrombin Time 10.9 Seconds (9.0-12.0)
[2018-11-30 05:51] LABS: Estimated Average Glucose 117 mg/dl; Hemoglobin A1C 5.7 % (4.5-5.6)
--- NOTE | 2018-12-27 20:41 | History and Physical Report ---
DATE OF ADMISSION: 12/28/2018 CHIEF COMPLAINT: Right hip pain. HISTORY OF PRESENT ILLNESS: This is a 78-year-old female patient of Dr. Castro complaining of chronic right hip pain, longstanding, now progressively getting worse. The patient has been diagnosed with end-stage osteoarthritis per clinical and radiographic exams. The patient has failed conservative treatment including anti-inflammatories and a home exercise program. PAST MEDICAL HISTORY: Chronic obstructive pulmonary disease, osteoarthritis and lung cancer. SOCIAL HISTORY: Nonsmoker. Occasional drinker. PAST SURGICAL HISTORY: Will be provided on admission. FAMILY HISTORY: Noncontributory. REVIEW OF SYSTEMS: Chronic right hip pain. Otherwise, denies any shortness of breath, chest pain, nausea, vomiting or any other joint complaints. MEDICATIONS: 1. Aspirin 81 mg daily. 2. Tudorza 400 mcg actuation 1 puff every 12 hours. ALLERGIES: BUPROPION, IODINE, LATEX AND ADHESIVE. PHYSICAL EXAMINATION: GENERAL: Well-developed, well-nourished, 78-year-old female, in no acute distress. She is alert and oriented x3 and pleasant. HEENT: Normocephalic and atraumatic. Extraocular motions are intact. Pupils are equal and reactive to light. HEART: Regular rate and rhythm with I/V murmur. LUNGS: Clear with decreased sounds throughout. ABDOMEN: Soft and nontender. Bowel sounds present. EXTREMITIES: Left hip reveals painful internal and external rotation. She has no flexion contracture. She has 5/5 strength with pain. NEUROLOGIC: Neurovascularly, she is intact in her right lower extremity. DIAGNOSES: Right hip end-stage osteoarthritis, chronic obstructive pulmonary disease, osteoarthritis and a history of lung cancer. PLAN: The patient was advised of her diagnosis. Indications, risks, benefits and postoperative course have all been reviewed. The patient wished to proceed with a right hip total arthroplasty. Necessary consent forms, preoperative testing and clearances will be obtained.
[~2018-12-28 08:19] MED LIST changes: -ACLI1AER3 INH; -ALPR-411 PO; -ASPI81TA28 PO; -BUPIVACAINE 0.25% 30 ML VIAL ONE; +CEFAZOLIN 2000MG 2,000 MG/15 ML SYR IV SCH; -CEFAZOLIN 2000MG IV PUSH 10 ML IV SCH; -CLB/200 PO; -DEXAMETHASONE 4 MG TAB PO SCH; -LACTATED RINGER'S 1000ML 1,000 ML IV SCH; -LACTATED RINGER'S 1000ML 500 ML IV SCH; -LACTATED RINGER'S 1000ML IV SCH; +LIDOCAINE HCL 2% 2 ML VIAL/AMP(20MG/ML) INFIL ONE; +LR 500ML BOLUS, THEN 15ML/HR IV SCH; -METOCLOPRAMIDE HCL 10 MG TAB PO SCH; +METOCLOPRAMIDE HCL 10 MG TABLET PO SCH; +MIDAZOLAM HCL 1 MG/ML 2ML VIAL ONE; +ONDANSETRON INJ 2 MG/ML 2 ML VIAL ONE; +PROPOFOL IV EMULSION 10 MG/ML 20 ML VIAL IV ONE; +ROPIVACAINE 0.5% HCL/PF 150 MG, BUPIVACAINE 0.5% MPF 30 ML, EPINEPHrine 30MG/30ML (OR U... INFIL SCH; -ROPIVACAINE 5MG/ML 30 ML 150 MG, BUPIVACAINE 0.5% MPF INJ 30 ML, EpINEphrine HCL INJ 0.... INFIL SCH; +TRANEXAMIC ACID 1,000 MG **IV Intra-op IV SCH; +TRANEXAMIC ACID 1,000 MG **IV Pre-op IV SCH; +dexAMETHasone 4 MG TAB PO SCH; +fentaNYL citrate 100 MCG/2 ML VIAL ONE
--- NOTE | 2018-12-28 08:48 | History & Physical Bridge Note ---
Date of Service December 28, 2018 History & Physical Bridge Note I have examined the patient, reviewed the History & Physical and in the interval since the performance of the History & Physical I have noted the following changes of clinical significance: no changes noted
[2018-12-28] MEDS ORDERED: ORTHO JOINT ANESTHETIC ONE (09:30)
[2018-12-28] MEDS ORDERED: BACITRACIN INJ 50,000 UNIT VIAL ONE (09:31)
[2018-12-28] MEDS ORDERED: PHENYLEPHRINE 100MCG/ML 5ML SYR ONE ×2 (11:09→13:24)
[2018-12-28] MEDS ORDERED: PROPOFOL IV EMULSION 10 MG/ML 20 ML VIAL IV ONE ×2 (12:13→13:27)
--- NOTE | 2018-12-28 13:29 | Post Operative Brief Note ---
Immediate Post Op Note v1 Date of Surgery December 28, 2018 Pre & Post Diagnosis Operation Date: 12/28/18 11:20 Pre-Op Diagnosis: Right Hip Osteoarthritis Post-Op Diagnosis: Right Hip Osteoarthritis I identified the patient and participated in the time-out.: Yes Procedure Operation Date: 12/28/18 11:20 Actual Procedures p Right Total Hip Arthroplasty(Right) - Liu Looney MD Surgeon Liu Looney MD [employer] ROVERTO Couch Estimated Blood Loss 200 Findings Consistent with Post-Op Diagnosis Specimens Femoral head Drains Hemovac Drain Anesthesia Type Spinal MAC Complications none Disposition Accompanied Patient To Recovery: No Disposition: Recovery Room Overlapping Procedure I was present for: the critical portions of procedure.
[2018-12-28] MEDS ORDERED: ESMOLOL HCL INJ 10 MG/ML 10ML VIAL IV ONE (13:46)
--- NOTE | 2018-12-28 14:24 | XRay Report ---
XR hip 1V RT w pelvis CLINICAL HISTORY: Postoperative evaluation. COMPARISON: None FINDINGS: Alignment of the total right hip arthroplasty is anatomic. There is no fracture or unexpec katia radiopaque foreign body. Drains are in place. There are acetabular screws. IMPRESSION: Expected findings following total right hip arthroplasty. Electronically signed by: Clif Peoples M.D. 12/28/2018 2:22 PM
[2018-12-28] MEDS ORDERED: MAGNESIUM HYDROXIDE SUSP 30 ML UDC PO PRN (15:21)
[2018-12-28] MEDS ORDERED: HYDROmorphone INJ 0.5 MG/0.5 ML SYR IV PRN (15:21)
[2018-12-28] MEDS ORDERED: ALPRAZolam 0.5 MG TABLET PO PRN (15:21)
[2018-12-28] MEDS ORDERED: NALOXONE HCL 0.4 MG/1 ML VIAL/CARP IV PRN (15:21)
[2018-12-28] MEDS ORDERED: ONDANSETRON INJ 2 MG/ML 2 ML VIAL IV PRN (15:21)
[2018-12-28] MEDS ORDERED: BISACODYL 10 MG SUPP PR PRN (15:21)
--- NOTE | 2018-12-28 15:33 | Anesthesiology Progress Note ---
Date of Service December 28, 2018 Anesthesia Post Procedure Vital Signs Vital Signs: Temp Pulse Pulse Pulse Resp BP BP 12/28/18 15:21 95 H 15 102/65 12/28/18 15:20 95 H 13 94/67 L 12/28/18 15:16 94 H 19 12/28/18 15:15 36.2 C L 96 H 16 101/60 12/28/18 15:11 96 H 20 12/28/18 15:10 98 H 17 103/67 12/28/18 15:06 95 H 16 12/28/18 15:05 96 H 20 93/62 L 12/28/18 15:02 98 H 18 12/28/18 15:01 96 H 24 90/61 L 12/28/18 15:00 95 H 15 85/58 L 12/28/18 14:56 93 H 18 12/28/18 14:55 96 H 14 91/65 L 12/28/18 14:51 96 H 15 12/28/18 14:50 95 H 16 86/62 L 12/28/18 14:46 95 H 18 12/28/18 14:45 96 H 14 95/61 L 12/28/18 14:41 98 H 21 12/28/18 14:40 95 H 19 96/61 L 12/28/18 14:36 92 H 13 12/28/18 14:35 94 H 14 99/65 L 12/28/18 14:31 94 H 19 12/28/18 14:30 96 H 24 88/64 L 12/28/18 14:26 94 H 18 12/28/18 14:25 93 H 16 90/66 L 12/28/18 14:21 97 H 18 12/28/18 14:20 93 H 15 98/61 L 12/28/18 14:16 94 H 14 12/28/18 14:15 93 H 14 99/65 L 12/28/18 14:14 93 H 19 12/28/18 14:13 94 H 18 86/61 L 12/28/18 14:12 94 H 17 12/28/18 14:11 94 H 14 85/59 L 12/28/18 14:10 95 H 18 89/57 L 12/28/18 14:06 95 H 14 12/28/18 14:05 95 H 13 102/81 12/28/18 14:01 93 H 17 12/28/18 14:00 90 16 116/75 12/28/18 13:57 87 17 110/77 12/28/18 13:56 90 21 12/28/18 13:55 95 H 16 77/59 L 12/28/18 13:54 36.2 C L 93 H 94 H 17 89/55 L 110/77 12/28/18 09:19 36.5 C 86 20 128/75 Pulse Ox 12/28/18 15:21 99 12/28/18 15:20 100 12/28/18 15:16 99 12/28/18 15:15 100 12/28/18 15:11 99 12/28/18 15:10 100 12/28/18 15:06 100 12/28/18 15:05 99 12/28/18 15:02 100 12/28/18 15:01 100 12/28/18 15:00 100 12/28/18 14:56 99 12/28/18 14:55 100 12/28/18 14:51 99 12/28/18 14:50 99 12/28/18 14:46 100 12/28/18 14:45 99 12/28/18 14:41 100 12/28/18 14:40 100 12/28/18 14:36 100 12/28/18 14:35 100 12/28/18 14:31 100 12/28/18 14:30 100 12/28/18 14:26 100 12/28/18 14:25 100 12/28/18 14:21 100 12/28/18 14:20 100 12/28/18 14:16 100 12/28/18 14:15 100 12/28/18 14:14 100 12/28/18 14:13 100 12/28/18 14:12 99 12/28/18 14:11 100 12/28/18 14:10 100 12/28/18 14:06 100 12/28/18 14:05 100 12/28/18 14:01 100 12/28/18 14:00 100 12/28/18 13:57 100 12/28/18 13:56 100 12/28/18 13:55 100 12/28/18 13:54 100 12/28/18 09:19 95 Pain Intensity Right Knee: Pain Intensity: 2 Right Hip: Pain Intensity: 0 Transfer of Care Handoff Completed per policy Notes Mental Status: alert / awake / arousable and participated in evaluation Patient Amnestic to Procedure: Yes Nausea / Vomiting: adequately controlled Pain: adequately controlled Airway Patency, RR, SpO2: stable & adequate BP & HR: stable & adequate Hydration State: stable & adequate Anesthetic Complications: no major complications apparent and Pt Satisfied with anesthetic care
[2018-12-28] MEDS: SODIUM CHLORIDE 0.9% 1000ML 1,000 ML IV SCH (15:45)
[2018-12-28] MEDS: ACETAMINOPHEN 500 MG TAB PO SCH ×2 (16:14→20:44)
--- NOTE | 2018-12-28 16:40 | Operative Report ---
Post Operative Report Pre & Post Diagnosis Operation Date: 12/28/18 11:20 Pre-Op Diagnosis: Right Hip Osteoarthritis Post-Op Diagnosis: Right Hip Osteoarthritis I identified the patient and participated in the time-out.: Yes Procedure Operation Date: 12/28/18 11:20 Actual Procedures p Right Total Hip Arthroplasty(Right) - Liu Looney MD Surgeon Liu Looney MD [employer] Teacher ROVERTO Couch Estimated Blood Loss 200 Findings Consistent with Post-Op Diagnosis Specimens Femoral head Drains 2 Hemovac Anesthesia Type Spinal MAC Complications none Disposition Accompanied Patient To Recovery: No Disposition: Recovery Room Indications 78-year-old female with progressive osteoarthritis in the right hip failed conservative management. Radiographs demonstrate protrusio type osteoarthritis with medial migration of the femoral head into the acetabulum with rimming osteophytes causing hip impingement. Description of Procedure Patient taken to the operating room and anesthetized under spinal anesthesia and sedation. Patient was placed supine on the operating table. Exam of the involved extremity demonstrated range of motion in flexion 110 degrees no internal rotation limited abduction to 30 degrees..The patient was placed on a sacral pad and the involved leg was placed on a foot bump to flex knee 90 and hip 60. A Carson-type approach was performed to the hip. A longitudinal lateral incision was made over the hip. The skin was incised sharply. The fat was divided down to the fascia. Subcutaneous bleeders are cauterized. Trochanteric bursa was resected. There was chronic thickened trochanteric bursitis. A split was made in the gluteus medius muscle between the anterior 40% and posterior 60%. The minimus was divided longitudinally reflected off the underlying capsule. The capsule was incised down to the hip joint. An incision was made through the gluteus medius leaving a cuff of tendon for repair on the greater trochanter. The vastus lateralis was split longitudinally for about 3 cm. A muscular capsular flap was elevated off the hip. The hip was dislocated with use of bone hook and with flexion and external rotation of the hip. The femoral neck cut was made approximately 15 mm proximal to the lesser trochanter in neutral anteversion. Head and neck fragment were removed. The femoral head demonstrated small femoral head smaller than the acetabulum. There were femoral neck osteophytes and acetabular osteophytes causing impingement. A self- retaining superior tractor was impacted into the ilium, a blunt Francisco retractor was placed anteriorly a double angled inferior retractor was placed on the ischium. The acetabulum demonstrated widened acetabulum with medial acetabular wear with protrusio type osteoarthritic pattern. The wear was close to being at the inner table. The acetabular labrum was resected all osteophytes were resected.The soft tissue in the acetabular fossa was resected. An anterior capsular release was performed. Some the capsule was resected for exposure. The first reamer was used placing it down on the already exposed inner table due to prior bone loss and then sequential reamers for the acetabulum were used in 2 mm increments up to a size 50. I used the Barosense total hip arthroplasty system using a PSL type cup. Trial reduction demonstrated a 50 millimeter cup was the appropriate size and fit. The placement of the final implant was performed after irrigating the acetabulum with antibiotic solution with pulsatil e lavage. The position of the cup was approximately 15 anteversion 45 abduction. Good fixation was performed. Two 6.5 mm cancellus screws were placed in the posterior superior quadrant for further fixation through the cup. The acetabular liner was impacted into position. The Trident X3 36 mm 10 degree E acetabular liner was used.The Orthomix coctail injected into the capsule around the acetabular component and deeper muscles. The retractors removed and attention was taken to the femur. The femur was exposed with flexion external rotation. A Canal reamer was used followed by sequential tapered Accolade 2 broaches up to a size 5. This had a good fit and fill. Trial reduction was performed with a 132 degree neck angle based on preoperative templating. A -5 neck length gave equal leg lengths and stable range of motion through full flexion flexion adduction and internal rotation and extension and external rotation. The trials removed and after irrigation again and the final implant was impacted which was the Accolade 2 size 5 with 132 degree neck angle. The Biolox ceramic head size 36-5 neck length was used. After final implants replaced the reduction was noted to be stable. Betadine soak was used per protocol. 2 drains were placed deep. These were brought out laterally and connected to Hemovac. The minimus was closed with interrupted [id number] #1 Vicryl sutures and transosseous #5 FiberWire suture into the greater trochanter. the medius was closed with transosseous #5 FiberWire sutures using Preston Denys suture technique. Lateral row soft tissue repair was performed with figure of 8 #2 FiberWire sutures. The medius split was closed with interrupted [id number] #1 Vicryl sutures. The vastus lateralis was closed with interrupted figure of eight #1Vicryl sutures. The fascia yumiko was closed with interrupted figure of eight #1 Vicryl sutures. The fat was closed with [id number] #2 Vicryl sutures. Skin was closed with candis and sterile dressings were applied. The patient tolerated procedure well. Donato LAYNE my physician school bus driver/teacher assistant assisted me in the procedure with patient positioning And draping soft tissue retraction instrument management suture management and assisted in the outer layer closure and will participate in the postoperative care the patient. I attest to the content of the Intraoperative Record and any orders documented therein. Any exceptions are noted below.
--- NOTE | 2018-12-28 17:19 | Hospitalist Consultation ---
Date of Consultation December 28, 2018 Assessment & Plan (1) Right knee DJD: -S/P R NIECY on 12/28 -doing well postoperatively; did have hypotension with surgery however this has resolved; patient denies symptoms of dizziness/lightheadedness and is mentating appropriately -Pain management, PT/OT, DVT prophylaxis, and surgical management per primary -DVT prophylaxis -ASA 81 mg twice daily; EBL 200 mL -Patient is hemodynamically stable -further episodes of hypotension recommend H&H recheck for possible transfusion needs; check labs in AM Hospitalist service will continue to follow Present on Admission?: Yes (2) COPD (chronic obstructive pulmonary disease): -Stable without current exacerbation -Continue Tudorza twice daily -patient reports bringing her own inhalers which she may use (3) Squamous cell carcinoma of left lung: -Remission -diagnosis approximately 9 years ago and underwent left lung removal and currently no chemotherapy/radiation Supervising Physician Co-Signing Physician Notes Patient seen and examined with Adry LAYNE. I agree with her exam findings, review of systems, assessment and plan. I personally reviewed the lab work and imaging as well. Patient feeling well after surgery, pain is controlled. Breathing is stable, no wheezing. - COPD: lungs clear, continue inhaled treatments - s/p hip replacement: pain control, DVT proph, d/c planning per ortho History of Present Illness Reason for Consultation: Postoperative management Attending Physician: Liu Looney MD History of Present Illness Ms. Castañeda is a 78 y/o with past medical history of squamous cell lung CA S/P L lung removal, COPD, venous insufficiency, and depression who is S/P R NIECY on 12/28. Hospitalist service consulted for postoperative management. Patient is doing well postoperatively. She is resting in bed with family at bedside. She was noted to have lower blood pressures in PACU. However the pressures are improving while on the floor. She denies having symptoms of low blood pressure earlier. She currently is mentating appropriately and denies dizziness or lightheadedness. She has been in her normal state of health. She has a history of squamous cell carcinoma with removal of her left lung approximately 9 years ago. She is currently not on any form of chemotherapy/radiation. She has not had any recent exacerbations of her COPD. She reports 2 occasions of being informed of a mild heart murmur. However, she has not had any formal evaluation of this. She reports her family doctor is aware of this heart murmur and are considering an echocardiogram. She denies history of cardiac disease and denies [place], CHF, chronic chest pain. She denies history of PE/DVT. Allergies Allergy/AdvReac Type Severity Reaction Status Date / Time bupropion Allergy Unknown hives Verified 12/28/18 08:55 Iodinated Contrast Media Allergy Unknown hives Verified 12/28/18 08:55 latex AdvReac Mild Redness of Verified 12/28/18 09:42 Skin adhesive tape AdvReac Unknown skin Verified 12/28/18 08:55 irritation- carmenza tape "ok" Home Medications Home Medications Medication Instructions Recorded Confirmed Type aclidinium bromide 1 inh INHALATION BID 11/22/18 12/28/18 History alprazolam 0.5 mg PO DAILY PRN 11/22/18 12/28/18 History ascorbic acid-vitamin E-biotin 1 tab PO QAM 11/22/18 12/28/18 History [Hair, Skin, Nails with Biotin] aspirin [Aspir-81] 81 mg PO QAM 11/22/18 12/28/18 History ferrous sulfate 325 mg PO QAM 11/22/18 12/28/18 History naproxen sodium [Aleve] 220 mg PO Q8H PRN 11/22/18 12/28/18 History Patient History Surgical History H/O: knee surgery LEFT (FOR LACERATION) History of appendectomy History of bronchoscopy History of section X2 History of colonoscopy History of lung surgery LEFT LOBECTOMY (2010) History of tonsillectomy History of total knee replacement RIGHT Hx of hand surgery 5TH DIGIT (RIGHT HAND) Family History Sister Family history of reaction to anesthesia SLOW TO WAKE UP AFTER LONG SURGERY ON BACK Social History Preferred Language: Pashto Communication Ability: Effective Leadership Program Intern Required: No Beliefs That Will Affect Care: None Current Living Situation: Spouse Other Information That Helps Us Care for You: No Feels Safe at Home: Yes Safety Concerns: Feels Safe At This Time Smoking Status: Former smoker Do You Dip or Chew Tobacco: No ; Smoking End Date: QUIT 2009 ; 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) ; Hx Alcohol Use: Yes Alcohol type: hard liquor Hx Substance Use: No Review of Systems Constitutional: no fever and no chills Eyes: no worsening vision Ear, Nose, Mouth, Throat: no nasal congestion, no sore throat, no hoarseness and no dysphagia Respiratory: no cough, no dyspnea and no wheezing Cardiovascular: no chest pain, no palpitations, no lightheadedness and no edema Gastrointestinal: no abdominal pain, no nausea, no vomiting, no constipation and no diarrhea/loose stools Genitourinary: no dysuria Musculoskeletal: no joint pain Integumentary: no rash Physical Exam Constitutional: WD/WN, vitals as above Eyes: + anicteric sclerae ENMT: Ears: no hearing impairment Neck: trachea midline Respiratory: normal respiratory effort, lungs clear to auscultation Cardiovascular: Rate/Rhythm: regular rate and regular rhythm Heart Sounds: + murmur Vessels: no JVD Extremities: normal capillary refill; no edema Gastrointestinal (Abdomen): Inspection/Auscultation: + abnormal bowel sounds Percussion/Palpation: abdomen soft; abdomen nontender Musculoskeletal: Head/Neck/Chest: normocephalic and head atraumatic R hip with dressing applied to surgical site C/D/I with drain present Skin: no rashes, warm and dry Neurologic: moves all extremities Psychiatric: A+Ox3, euthymic affect Results & Data Vital Signs (Past 12 Hours) Vital Signs Temp Pulse Pulse Pulse Resp BP BP 12/28/18 16:37 36.4 C L 94 H 17 105/69 12/28/18 16:06 36.4 C L 95 H 17 98/64 L 12/28/18 15:21 95 H 15 102/65 12/28/18 15:20 95 H 13 94/67 L 12/28/18 15:16 94 H 19 12/28/18 15:15 36.2 C L 96 H 16 101/60 12/28/18 15:11 96 H 20 12/28/18 15:10 98 H 17 103/67 12/28/18 15:06 95 H 16 12/28/18 15:05 96 H 20 93/62 L 12/28/18 15:02 98 H 18 12/28/18 15:01 96 H 24 90/61 L 12/28/18 15:00 95 H 15 85/58 L 12/28/18 14:56 93 H 18 12/28/18 14:55 96 H 14 91/65 L 12/28/18 14:51 96 H 15 12/28/18 14:50 95 H 16 86/62 L 12/28/18 14:46 95 H 18 12/28/18 14:45 96 H 14 95/61 L 12/28/18 14:41 98 H 21 12/28/18 14:40 95 H 19 96/61 L 12/28/18 14:36 92 H 13 12/28/18 14:35 94 H 14 99/65 L 12/28/18 14:31 94 H 19 12/28/18 14:30 96 H 24 88/64 L 12/28/18 14:26 94 H 18 12/28/18 14:25 93 H 16 90/66 L 12/28/18 14:21 97 H 18 12/28/18 14:20 93 H 15 98/61 L 12/28/18 14:16 94 H 14 12/28/18 14:15 93 H 14 99/65 L 12/28/18 14:14 93 H 19 12/28/18 14:13 94 H 18 86/61 L 12/28/18 14:12 94 H 17 12/28/18 14:11 94 H 14 85/59 L 12/28/18 14:10 95 H 18 89/57 L 12/28/18 14:06 95 H 14 12/28/18 14:05 95 H 13 102/81 12/28/18 14:01 93 H 17 12/28/18 14:00 90 16 116/75 12/28/18 13:57 87 17 110/77 12/28/18 13:56 90 21 12/28/18 13:55 95 H 16 77/59 L 12/28/18 13:54 36.2 C L 93 H 94 H 17 89/55 L 110/77 12/28/18 09:19 36.5 C 86 20 128/75 Pulse Ox 12/28/18 16:37 100 12/28/18 16:06 99 12/28/18 15:21 99 12/28/18 15:20 100 12/28/18 15:16 99 12/28/18 15:15 100 12/28/18 15:11 99 12/28/18 15:10 100 12/28/18 15:06 100 12/28/18 15:05 99 12/28/18 15:02 100 12/28/18 15:01 100 12/28/18 15:00 100 12/28/18 14:56 99 12/28/18 14:55 100 12/28/18 14:51 99 12/28/18 14:50 99 12/28/18 14:46 100 12/28/18 14:45 99 12/28/18 14:41 100 12/28/18 14:40 100 12/28/18 14:36 100 12/28/18 14:35 100 12/28/18 14:31 100 12/28/18 14:30 100 12/28/18 14:26 100 12/28/18 14:25 100 12/28/18 14:21 100 12/28/18 14:20 100 12/28/18 14:16 100 12/28/18 14:15 100 12/28/18 14:14 100 12/28/18 14:13 100 12/28/18 14:12 99 12/28/18 14:11 100 12/28/18 14:10 100 12/28/18 14:06 100 12/28/18 14:05 100 12/28/18 14:01 100 12/28/18 14:00 100 12/28/18 13:57 100 12/28/18 13:56 100 12/28/18 13:55 100 12/28/18 13:54 100 12/28/18 09:19 95 PG Care Time/CCT Total # of Minutes Spent Total Time Spent with Patient: Total time spent is greater than 50% in coordination of care (as documented) at patient's floor/unit and/or counseling patient:
[2018-12-28] MEDS: CEFAZOLIN 2000MG 2,000 MG/15 ML SYR IV SCH (19:10)
[2018-12-28] MEDS: DOCUSATE SODIUM 100 MG CAP PO SCH (20:43)
[2018-12-28] MEDS: ASPIRIN 81 MG ECTAB PO SCH (20:43)
[2018-12-28] MEDS: SENNA 8.6 MG TAB PO SCH (20:44)
[2018-12-28] MEDS: CeleBREX 200 MG CAP PO SCH (20:44)
[2018-12-28] MEDS ORDERED: ACLIDINIUM BROMIDE INH SCH (21:00)
[2018-12-29] MEDS: SODIUM CHLORIDE 0.9% 1000ML 1,000 ML IV SCH (02:31)
[2018-12-29] MEDS: CEFAZOLIN 2000MG 2,000 MG/15 ML SYR IV SCH (03:00)
[2018-12-29 05:46] LABS: Hematocrit (blood only) 30.1 % (37-47); Hemoglobin 10.1 g/dL (12.0-16.0); Immature Granulocytes # (auto) 0.02 K/uL (0.00-0.02); Immature Granulocytes % (auto) 0.2 %; Lymphocytes # (auto) 0.58 K/uL (1.2-3.4); Lymphocytes % (auto) 5.3 %; Mean Corpuscular Hemoglobin 31.5 pg (25-34); Mean Corpuscular Hgb Conc 33.6 g/dL (32-36); Mean Corpuscular Volume 93.8 fL (80-100); Mean Platelet Volume 10.1 fL (7.4-10.4); Monocytes # (auto) 0.98 K/uL (0.11-0.59); Neutrophils # (auto) 9.36 K/uL (1.4-6.5); Neutrophils % (auto) 85.5 %; Platelet Count 169 K/uL (130-400); RDW Coefficient of Variation 13.8 % (11.5-14.5); RDW Standard Deviation 47.3 fL (36.4-46.3); Red Blood Count 3.21 M/uL (4.2-5.4); White Blood Count 10.94 K/uL (4.8-10.8)
[2018-12-29] MEDS: ACETAMINOPHEN 500 MG TAB PO SCH ×3 (05:51→22:22)
[2018-12-29 06:26] LABS: BUN Creatinine Ratio 14.8 (10-20); Calcium 8.8 mg/dl (8.5-10.1); Creatinine Clr Calc Pharmacy 49.3 ml/min; Potassium 4.3 mmol/L (3.5-5.1)
--- NOTE | 2018-12-29 08:25 | Anesthesiology Progress Note ---
Date of Service December 29, 2018 Anesthesia Post Procedure Vital Signs Vital Signs: Temp Pulse Pulse Pulse Resp BP BP 12/29/18 07:59 36.9 C 82 16 100/64 12/29/18 03:51 36.6 C 84 16 98/60 L 12/28/18 23:31 36.6 C 93 H 16 106/67 12/28/18 19:30 36.5 C 98 H 18 96/62 L 12/28/18 17:35 36.8 C 98 H 18 111/72 12/28/18 16:37 36.4 C L 94 H 17 105/69 12/28/18 16:06 36.4 C L 95 H 17 98/64 L 12/28/18 15:21 95 H 15 102/65 12/28/18 15:20 95 H 13 94/67 L 12/28/18 15:16 94 H 19 12/28/18 15:15 36.2 C L 96 H 16 101/60 12/28/18 15:11 96 H 20 12/28/18 15:10 98 H 17 103/67 12/28/18 15:06 95 H 16 12/28/18 15:05 96 H 20 93/62 L 12/28/18 15:02 98 H 18 12/28/18 15:01 96 H 24 90/61 L 12/28/18 15:00 95 H 15 85/58 L 12/28/18 14:56 93 H 18 12/28/18 14:55 96 H 14 91/65 L 12/28/18 14:51 96 H 15 12/28/18 14:50 95 H 16 86/62 L 12/28/18 14:46 95 H 18 12/28/18 14:45 96 H 14 95/61 L 12/28/18 14:41 98 H 21 12/28/18 14:40 95 H 19 96/61 L 12/28/18 14:36 92 H 13 12/28/18 14:35 94 H 14 99/65 L 12/28/18 14:31 94 H 19 12/28/18 14:30 96 H 24 88/64 L 12/28/18 14:26 94 H 18 12/28/18 14:25 93 H 16 90/66 L 12/28/18 14:21 97 H 18 12/28/18 14:20 93 H 15 98/61 L 12/28/18 14:16 94 H 14 12/28/18 14:15 93 H 14 99/65 L 12/28/18 14:14 93 H 19 12/28/18 14:13 94 H 18 86/61 L 12/28/18 14:12 94 H 17 12/28/18 14:11 94 H 14 85/59 L 12/28/18 14:10 95 H 18 89/57 L 12/28/18 14:06 95 H 14 12/28/18 14:05 95 H 13 102/81 12/28/18 14:01 93 H 17 12/28/18 14:00 90 16 116/75 12/28/18 13:57 87 17 110/77 12/28/18 13:56 90 21 12/28/18 13:55 95 H 16 77/59 L 12/28/18 13:54 36.2 C L 93 H 94 H 17 89/55 L 110/77 12/28/18 09:19 36.5 C 86 20 128/75 Pulse Ox 12/29/18 07:59 96 12/29/18 03:51 96 12/28/18 23:31 93 12/28/18 19:30 95 12/28/18 17:35 99 12/28/18 16:37 100 12/28/18 16:06 99 12/28/18 15:21 99 12/28/18 15:20 100 12/28/18 15:16 99 12/28/18 15:15 100 12/28/18 15:11 99 12/28/18 15:10 100 12/28/18 15:06 100 12/28/18 15:05 99 12/28/18 15:02 100 12/28/18 15:01 100 12/28/18 15:00 100 12/28/18 14:56 99 12/28/18 14:55 100 12/28/18 14:51 99 12/28/18 14:50 99 12/28/18 14:46 100 12/28/18 14:45 99 12/28/18 14:41 100 12/28/18 14:40 100 12/28/18 14:36 100 12/28/18 14:35 100 12/28/18 14:31 100 12/28/18 14:30 100 12/28/18 14:26 100 12/28/18 14:25 100 12/28/18 14:21 100 12/28/18 14:20 100 12/28/18 14:16 100 12/28/18 14:15 100 12/28/18 14:14 100 12/28/18 14:13 100 12/28/18 14:12 99 12/28/18 14:11 100 12/28/18 14:10 100 12/28/18 14:06 100 12/28/18 14:05 100 12/28/18 14:01 100 12/28/18 14:00 100 12/28/18 13:57 100 12/28/18 13:56 100 12/28/18 13:55 100 12/28/18 13:54 100 12/28/18 09:19 95 Pain Intensity Right Knee: Pain Intensity: 2 Right Hip: Pain Intensity: 0 Notes Mental Status: alert / awake / arousable and participated in evaluation Patient Amnestic to Procedure: Yes Nausea / Vomiting: adequately controlled Pain: adequately controlled Airway Patency, RR, SpO2: stable & adequate BP & HR: stable & adequate Hydration State: stable & adequate Neuraxial Anesthesia: was administered and sensory block resolved Anesthetic Complications: no major complications apparent and Pt Satisfied with anesthetic care
[2018-12-29] MEDS: CeleBREX 200 MG CAP PO SCH ×2 (08:41→20:18)
[2018-12-29] MEDS: FERROUS SULFATE 325 MG TAB PO SCH (08:41)
[2018-12-29] MEDS: MULTIVITAMIN TAB PO SCH (08:42)
[2018-12-29] MEDS: ASPIRIN 81 MG ECTAB PO SCH ×2 (08:42→20:18)
[2018-12-29] MEDS: DOCUSATE SODIUM 100 MG CAP PO SCH ×2 (08:42→20:17)
--- NOTE | 2018-12-29 08:50 | Hospitalist Progress Note ---
Date of Service December 29, 2018 Assessment & Plan (1) Right knee DJD: -S/P R NIECY on 12/28 -doing well postoperatively; did have hypotension with surgery however this has resolved; patient denies symptoms of dizziness/lightheadedness and is mentating appropriately -Pain management, PT/OT, DVT prophylaxis, and surgical management per primary -DVT prophylaxis -ASA 81 mg twice daily; EBL 200 mL -Patient is hemodynamically stable -further episodes of hypotension recommend H&H recheck for possible transfusion needs; check labs in AM Hospitalist service will continue to follow (2) COPD (chronic obstructive pulmonary disease): -Stable without current exacerbation -Continue Tudorza twice daily -patient reports bringing her own inhalers which she may use (3) Squamous cell carcinoma of left lung: -Remission -diagnosis approximately 9 years ago and underwent left lung removal and currently no chemotherapy/radiation Physical Exam Constitutional: WD/WN, vitals as above Eyes: + anicteric sclerae ENMT: Ears: no hearing impairment Neck: trachea midline Respiratory: normal respiratory effort, lungs clear to auscultation Cardiovascular: Rate/Rhythm: regular rate and regular rhythm Heart Sounds: + murmur Vessels: no JVD Extremities: normal capillary refill; no edema Gastrointestinal (Abdomen): Inspection/Auscultation: + abnormal bowel sounds Percussion/Palpation: abdomen soft; abdomen nontender Musculoskeletal: Head/Neck/Chest: normocephalic and head atraumatic Skin: no rashes, warm and dry Neurologic: moves all extremities Psychiatric: A+Ox3, euthymic affect Results & Data Vital Signs (Past 12 Hours) Vital Signs Temp Pulse Resp BP Pulse Ox 12/29/18 07:59 36.9 C 82 16 100/64 96 12/29/18 03:51 36.6 C 84 16 98/60 L 96 12/28/18 23:31 36.6 C 93 H 16 106/67 93 PG Care Time/CCT Total # of Minutes Spent Total Time Spent with Patient: Total time spent is greater than 50% in coordination of care (as documented) at patient's floor/unit and/or counseling patient:
[2018-12-29] MEDS ORDERED: [UNRECOGNIZED DRUG - OTHER] PO SCH (09:00)
[2018-12-29] MEDS ORDERED: NON-FORMULARY MEDICATION (Ascorbic Acid-Vitamin E-Biotin [Hair, Skin, Nails With Biotin] 1 PO SCH (09:00)
--- NOTE | 2018-12-29 10:34 | Orthopedic Progress Note ---
Date of Service December 29, 2018 Assessment & Plan (1) Arthritis of right hip: POD #1, Right NIECY PT/ OT DVT proph- ASA D/C planning- Home w HH As per medicine. Subjective POD #1, Doing well. Denies SOB, CP, N/V. Pain controlled well. Wishes for HH on discharge. Physical Exam Physical Exam: Right hip dressings c/d/i, no drainage, drain in tact. Toes/ ankle mobile. No calf tenderness. A&Ox3 Results & Data Vital Signs (Past 12 Hours) Vital Signs Temp Pulse Resp BP Pulse Ox 12/29/18 07:59 36.9 C 82 16 100/64 96 12/29/18 03:51 36.6 C 84 16 98/60 L 96 12/28/18 23:31 36.6 C 93 H 16 106/67 93
[2018-12-29] MEDS: OXYCODONE HCL IR 5 MG TAB (IMMEDIATE RELEASE) PO PRN ×2 (13:56→18:18)
--- NOTE | 2018-12-29 17:09 | Hospitalist Progress Note ---
Date of Service December 29, 2018 Assessment & Plan (1) Right knee DJD: -S/P R NIECY on 12/28 -doing well postoperatively; did have hypotension with surgery however this has improved but still with intermittent low normal pressures; patient denies symptoms of dizziness/lightheadedness and is mentating appropriately -Pain management, PT/OT, DVT prophylaxis, and surgical management per primary -DVT prophylaxis -ASA 81 mg twice daily; EBL 200 mL - Labs in AM Patient is hemodynamically stable. Chronic medical conditions are stable. Recommend to continue home medications as previously prescribed on D/C. Hospitalist service will sign off at this time. Please do not hesitate to contact us for any questions or changes in medical status. (2) COPD (chronic obstructive pulmonary disease): -Stable without current exacerbation -Continue Tudorza twice daily -patient reports bringing her own inhalers which she may use (3) Squamous cell carcinoma of left lung: -Remission -diagnosis approximately 9 years ago and underwent left lung removal and currently no chemotherapy/radiation Subjective Reports feeling well. Sitting in chair during visit. States pain is well cont rolled. Still with intermittent low normal blood pressures but asymptomatic. States she normally has lower blood pressures. Hgb is reduced from preop labs but at 10.1 and no asymptomatic. She anticipates home on discharge. Review of Systems Constitutional: no fever and no chills Respiratory: no cough and no dyspnea Cardiovascular: no chest pain, no palpitations and no lightheadedness Gastrointestinal: no abdominal pain, no nausea, no vomiting, no constipation and no diarrhea/loose stools Genitourinary: no dysuria Integumentary: no rash Physical Exam Constitutional: WD/WN, vitals as above Eyes: + anicteric sclerae ENMT: Ears: no hearing impairment Neck: trachea midline Respiratory: normal respiratory effort, lungs clear to auscultation Cardiovascular: Rate/Rhythm: regular rate and regular rhythm Heart Sounds: + murmur Vessels: no JVD Extremities: normal capillary refill; no edema Gastrointestinal (Abdomen): Inspection/Auscultation: normal bowel sounds Percussion/Palpation: abdomen soft; abdomen nontender Musculoskeletal: Head/Neck/Chest: normocephalic and head atraumatic drain intact to R hip; dressings applied C/D/I Skin: no rashes, warm and dry Neurologic: moves all extremities Psychiatric: A+Ox3, euthymic affect Results & Data Vital Signs (Past 12 Hours) Vital Signs Temp Pulse Resp BP Pulse Ox 12/29/18 15:51 36.4 C L 90 14 91/58 L 94 12/29/18 11:14 36.8 C 86 16 104/68 97 12/29/18 07:59 36.9 C 82 16 100/64 96 PG Care Time/CCT Total # of Minutes Spent Total Time Spent with Patient: Total time spent is greater than 50% in coordination of care (as documented) at patient's floor/unit and/or counseling patient:
[2018-12-29] MEDS: SENNA 8.6 MG TAB PO SCH (20:18)
[2018-12-29] MEDS: NON-FORMULARY PATIENT'S OWN MED PO SCH (20:19)
[2018-12-30] MEDS: ACETAMINOPHEN 500 MG TAB PO SCH (05:53)
[2018-12-30] MEDS: OXYCODONE HCL IR 5 MG TAB (IMMEDIATE RELEASE) PO PRN (05:58)
[2018-12-30 06:53] LABS: Basophils # (auto) 0.01 K/uL (0-0.2); Basophils % (auto) 0.1 %; Eosinophils # (auto) 0.25 K/uL (0-0.5); Eosinophils % (auto) 3.3 %; Hematocrit (blood only) 30.8 % (37-47); Hemoglobin 10.1 g/dL (12.0-16.0); Immature Granulocytes # (auto) 0.01 K/uL (0.00-0.02); Immature Granulocytes % (auto) 0.1 %; Lymphocytes # (auto) 1.05 K/uL (1.2-3.4); Lymphocytes % (auto) 13.8 %; Mean Corpuscular Hemoglobin 31.2 pg (25-34); Mean Corpuscular Hgb Conc 32.8 g/dL (32-36); Mean Corpuscular Volume 95.1 fL (80-100); Mean Platelet Volume 10.3 fL (7.4-10.4); Monocytes # (auto) 0.88 K/uL (0.11-0.59); Monocytes % (auto) 11.6 %; Neutrophils % (auto) 71.1 %; Platelet Count 161 K/uL (130-400); RDW Coefficient of Variation 14.2 % (11.5-14.5); RDW Standard Deviation 49.1 fL (36.4-46.3); Red Blood Count 3.24 M/uL (4.2-5.4)
[2018-12-30 07:20] LABS: BUN Creatinine Ratio 16.8 (10-20); Calcium 9.1 mg/dl (8.5-10.1); Est GFR (African American) 56.1; Est GFR (Non-African American) 48.4; Potassium 4.1 mmol/L (3.5-5.1)
[2018-12-30] MEDS: FERROUS SULFATE 325 MG TAB PO SCH (07:34)
[2018-12-30] MEDS: ASPIRIN 81 MG ECTAB PO SCH (07:34)
[2018-12-30] MEDS: MULTIVITAMIN TAB PO SCH (07:34)
[2018-12-30] MEDS: DOCUSATE SODIUM 100 MG CAP PO SCH (07:35)
[2018-12-30] MEDS: CeleBREX 200 MG CAP PO SCH (07:35)
[2018-12-30] MEDS: NON-FORMULARY PATIENT'S OWN MED PO SCH (07:35)
--- NOTE | 2018-12-30 08:52 | Orthopedic Progress Note ---
Date of Service December 30, 2018 Assessment & Plan (1) Arthritis of right hip: POD #2, Right NIECY PT/ OT DVT proph- ASA D/C planning- Home w HH today As per medicine. Subjective POD #2, Doing well. Denies SOB, CP, N/V. Pain controlled well. Physical Exam Physical Exam: Right hip dressings c/d/i, no drainage, no erythema. Toes/ ankle mobile. No calf tenderness. A&Ox3. Results & Data Vital Signs (Past 12 Hours) Vital Signs Temp Pulse Resp BP Pulse Ox 12/30/18 06:30 36.4 C L 83 17 102/64 92 12/29/18 23:52 36.8 C 81 18 98/62 L 94
== END 2018-12-30 12:41 | disposition home health service (06) | DRG 470 ==
LOC: ASU 08:19 → 3E 13:57